=== PATIENT | male | born 1980 | race Two or more races ===

== ENCOUNTER 2018-09-03 13:02 | Emergency (ER) | payer SELFPAY ==
[2018-09-03 14:43] VITALS: BP 131/88; PULSE 76; RESP 18; TEMP 98; O2SAT 98
== END 2018-09-03 14:59 | disposition left against medical advice (07) ==
LOC: ED 13:02
DX: Z02.89 Encounter for other administrative examinations (principal); S69.91XA Unspecified injury of right wrist, hand and finger(s), initial encounter

== ENCOUNTER 2018-10-27 10:13 | Emergency (ER) | payer OTHER ==
[2018-10-27 10:14] VITALS: BMI 21.1
--- NOTE | 2018-10-27 10:34 | ED PDOC ---
Arrival/HPI - General Chief Complaint: Flu-like Symptoms Historian: Patient - History of Present Illness Narrative History of Present Illness (Text): 10/27/18 10:32 38 y/o male, no significant pmh, nkda, c/o throat pain/cough/fatigue and fever x 2 days. Aching throat pain, associated with cough, admits fatigue, febrile low grade temp, no abdominal pain or neck stiffness, no chest pain or shortness of breath, no rash, no night sweat, no other medical or psychological complaints. Past Medical History - Provider Review Nursing Documentation Reviewed: Yes - Infectious Disease Hx of Infectious Diseases: None - Tetanus Immunization Tetanus Immunization: Unknown - Past Medical History Past Medical History: No Previous - Psychiatric Hx Psychophysiologic Disorder: No Hx Substance Use: No - Past Surgical History Past Surgical History: No Previous - Anesthesia Hx Anesthesia: No Hx Anesthesia Reactions: No Hx Malignant Hyperthermia: No - Suicidal Assessment Feels Threatened In Home Enviroment: No Family/Social History - Physician Review Nursing Documentation Reviewed: Yes Family/Social History: Unknown Family HX Smoking Status: Never Smoked Hx Alcohol Use: No Hx Substance Use: No Hx Substance Use Treatment: No Allergies/Home Meds Allergies/Adverse Reactions: Allergies No Known Allergies Allergy (Verified 10/27/18 10:16) Home Medications: Home Meds Medication Instructions Recorded Confirmed Amoxicillin/Clavulanate [Augmentin 1 tab PO BID 10/27/18 10/27/18 875 MG-125 MG Tab] Benzonatate [Tessalon Perle] 1 cap PO DAILY 10/27/18 10/27/18 Promethazine HCl/Codeine 5 ml PO PRN PRN 10/27/18 10/27/18 [Prometh-Codein 6.25-10 mg/5 ml] Review of Systems - Review of Systems Constitutional: Fatigue, Fevers Eyes: absent: Vision Changes ENT: Sore Throat. absent: Hearing Changes Respiratory: Cough. absent: SOB Cardiovascular: absent: Chest Pain Gastrointestinal: absent: Abdominal Pain, Diarrhea, Nausea, Vomiting Skin: absent: Rash, Pruritis Neurological: absent: Headache, Dizziness Psychiatric: absent: Anxiety, Depression, Suicidal Ideation Physical Exam Vital Signs Reviewed: Yes Vital Signs Temp Pulse Resp BP Pulse Ox 10/27/18 10:16 100.4 F H 118 H 17 136/81 97 Temperature: Febrile Blood Pressure: Normal Pulse: Tachycardic Respiratory Rate: Normal Appearance: Positive for: Well-Appearing, Non-Toxic, Comfortable Pain Distress: Mild Mental Status: Positive for: Alert and Oriented X 3 - Systems Exam Head: Present: Atraumatic, Normocephalic Pupils: Present: PERRL Extroacular Muscles: Present: EOMI Conjunctiva: Present: Normal Ears: Present: NORMAL TM, Normal Canal. No: Erythema Mouth: Present: Moist Mucous Membranes Pharnyx: Present: ERYTHEMA. No: EXUDATE, TONSILS ENLARGED Nose (External): Present: Atraumatic. No: Abrasion, Contusion, Laceration Nose (Internal): Present: Normal Inspection, No Active Bleeding. No: Rhinorrhea, Septal Hematoma, Epistaxis Neck: Present: Normal Range of Motion, Lymphadenopathy (Rt. anterior), Trachea Midline. No: Meningeal Signs, MIDLINE TENDERNESS, Paraspinal Tenderness Respiratory/Chest: Present: Clear to Auscultation, Good Air Exchange. No: Respiratory Distress, Accessory Muscle Use, Wheezes, Decreased Breath Sounds, Rales, Retracting, Rhonchi, Tachypneic, Tender to Palpation Cardiovascular: Present: Regular Rate and Rhythm, Normal S1, S2. No: Murmurs Abdomen: No: Tenderness, Distention, Peritoneal Signs Back: Present: Normal Inspection Upper Extremity: Present: Normal Inspection. No: Cyanosis, Edema Lower Extremity: Present: Normal Inspection. No: Edema Neurological: Present: GCS=15, CN II-XII Intact, Speech Normal, Motor Func Grossly Intact, Normal Cerebellar Funct, Gait Normal, Memory Normal Skin: Present: Warm, Dry, Normal Color. No: Rashes Psychiatric: Present: Alert, Oriented x 3, Normal Insight, Normal Concentration Medical Decision Making ED Course and Treatment: 10/27/18 10:34 -Chest xray -Rapid flu -Tylenol and motrin -Observe and reassess 10/27/18 11:48 -Rapid flu is negative. -Chest xray Er wet read: no active disease. -Pt. feels well, feeling much better, eating and drinking well. Vitally impr saul. -Discharge home with augmentin, tamiflu, bromfed dm, motrin, stay hydrated, bed erst, follow up with your own pmd and ENT within 2 days, return to the ER for any new or worsening signs or symptoms. - RAD Interpretation Radiology Orders: Chest xray: no active disease Allergy And Immunology Chief: Radiologist - PA / [employer] E[employer]OMIST / Resident Statement MD/DO has reviewed & agrees with the documentation as recorded. Disposition/Present on Arrival - Present on Arrival Any Indicators Present on Arrival: No History of DVT/PE: No History of Uncontrolled Diabetes: No Urinary Catheter: No History of Decub. Ulcer: No History Surgical Site Infection Following: None - Disposition Have Diagnosis and Disposition been Completed?: Yes Diagnosis: Flu-like symptoms, Pharyngitis Disposition: HOME/ ROUTINE Disposition Time: 11:27 Patient Plan: Discharge Condition: GOOD Additional Instructions: -Discharge home with augmentin, tamiflu, bromfed dm, motrin, stay hydrated, bed erst, follow up with your own pmd and ENT within 2 days, return to the ER for any new or worsening signs or symptoms. Prescriptions: Amoxicillin/Clavulanate [Augmentin 875 MG-125 MG] 1 tab PO BID #20 tab Brompheniramine/Pseudoephed/Dm [Bromfed Dm Cough 118 ml] 10 ml PO QID PRN #250 ml PRN Reason: Other Ibuprofen [Motrin Tab] 600 mg PO QID PRN #30 tab PRN Reason: Other Oseltamivir Phosphate [Tamiflu] 75 mg PO BID #10 capsule Referrals: Oziel Newsome APN [Primary Care Provider] - Follow up with primary Forms: [facility] (Faroese), WORK NOTE
[2018-10-27 11:35] VITALS: BP 118/79; PULSE 97; RESP 18; TEMP 99.5; O2SAT 96
--- NOTE | 2018-10-27 12:45 | RAD ---
Date of service: 10/27/2018 HISTORY: cough fever x 2 days COMPARISON: No prior. TECHNIQUE: Chest PA and lateral views FINDINGS: LUNGS: No active pulmonary disease. PLEURA: No significant pleural effusion identified. No pneumothorax apparent. CARDIOVASCULAR: No aortic atherosclerotic calcification present. Normal cardiac size. No pulmonary vascular congestion. OSSEOUS STRUCTURES: No significant abnormalities. VISUALIZED UPPER ABDOMEN: Normal. OTHER FINDINGS: None. IMPRESSION: No active disease.
== END 2018-10-27 12:11 | disposition home or self-care (01) ==
LOC: ED 10:13
DX: J11.1 Influenza due to unidentified influenza virus with other respiratory manifestations (principal)